=== PATIENT | female | born 1975 | race Caucasian/White ===

== ENCOUNTER → 2018-06-09 | Outpatient (CLI) | payer BC ==
[2018-06-09 09:36] VITALS: BP 119/84; PULSE 121; TEMP 98.2; BMI 38.0
--- NOTE | 2018-06-09 10:58 | P.HPOB ---
History of Present Illness H&P Date: 06/09/18 Chief Complaint: The patient is here for her routine gynecologic exam. This is a 43-year-old G0 with an LMP of 05/30/2018. The patient has never been sexually active. She states her menses are regular every month. Over the last 10 years, her menstrual periods have gotten heavier and longer. They previously were 4 days long and now our lasting about 7 days with 3 days of heavy flow. She also has significant cramping with the heavy flow. On the heavy days, she has to change your protection up to every one or 2 hours. She can bleed through her heavy protection. She has also been dealing with iron deficiency anemia and sees a research administrator because of this. She was told she does not absorb oral iron well and has required iron infusions. She states she is not interested in childbearing and would like to do something about her heavy menses. She has tried several -control pills, but each had side effects that were not tolerable to her. She has used Anaprox for her cramps, but this made her tired. She does take Advil which has been more tolerable. It has been about 4 years since her last pelvic exam. Review of Systems She has intentionally lost about 24 pounds. She denies respiratory, cardiac, or G.I. problems. Past Medical History Past Medical History: Thyroid Disorder (Erwin's and hypothyroidism) Additional Past Medical History / Comment(s): Iron deficiency anemia. Seasonal allergies. 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 History of Any Multi-Drug Resistant Organisms: None Reported Past Surgical History: No Surgical Hx Reported Past Psychological History: Anxiety, Depression Smoking Status: Never smoker Past Alcohol Use History: Rare (10 per year) Past Drug Use History: None Reported Additional History: She is single and is not seen anybody at this time. 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 - Past Family History Father Family Medical History: Hyperlipidemia Mother Family Medical History: No Reported History Additional Family Medical History / Comment(s): Maternal grandmother:colon and breast cancer Medications and Allergies Home Medications Medication Instructions Recorded Confirmed Type Escitalopram [Lexapro] mg PO DAILY 06/09/18 History Levocetirizine Dihydrochloride mg PO DAILY 06/09/18 History [Xyzal] Levothyroxine Sodium [Synthroid] mcg PO DAILY 06/09/18 History Phentermine HCl mg PO DAILY 06/09/18 History Allergies Allergy/AdvReac Type Severity Reaction Status Date / Time No Known Allergies Allergy Unverified 06/09/18 09:32 Exam Vital Signs Temp Pulse BP 06/09/18 09:34 98.2 F 121 H 119/84 Intake and Output 06/08/18 06/09/18 06/09/18 22:59 06:59 14:59 Other: Weight 94.347 kg Height 5'2", BMI 38.0. This is a well-developed well-nourished heavyset white female who is alert and oriented times 3 in no acute distress. HEENT: Within normal limits. NECK: Supple without mass or thyromegaly. CHEST AND LUNGS: Clear to auscultation. HEART: tachycardia. BREASTS: Are without mass or discharge. AXILLARY EXAM: Negative for adenopathy. BACK: Negative for CVA tenderness. ABDOMEN: Soft, nontender, without palpable masses. PELVIC EXAM: Normal external genitalia . Introitus is virginal and allows a narrow Christina speculum or a single digit. Cervix and vagina appear normal. There is a clear mucus discharge possibly consistent with ovulation. There is no evidence of prolapse. The uterus is midposition, multiparous nongravid size (mildly enlarged for a nulliparous female)and nontender. There are no palpable adnexal masses or tenderness. RECTAL EXAM: negative for mass or tenderness and is negative for occult blood. EXTREMITIES: Nontender. IMPRESSION: 1. 43-year-old virginal female with menorrhagia and iron deficiency anemia which may be secondary to the menorrhagia. 2. Tachycardia. The patient states she has a chronically elevated heart rate secondary to her anemia. She also states that is a bit higher than usual because of some anxiety. PLAN: 1. Pap smear was performed. 2. Self breast awareness was discussed with the patient. 3. Baseline screening mammogram is recommended and the order slip was given the patient for this. 4. Pelvic ultrasound to further evaluate her menorrhagia and mildly enlarged uterus. 5. Trial of meclofenamate sodium 100 mg TID PRN for heavy menstrual flow 6 days per cycle. The electronic prescription will be sent to [facility] pharmacy and [facility]. 6. The patient will keep a menstrual calendar. If she does not have significant improvement after 3 months with the medication, she will call and we will discuss other options including endometrial ablation. 7. We have discussed other options including endometrial ablation and hysterectomy. She understands that both of these procedures are not recommended if she wants to get . She states that she is not interested in bearing children. The [employer] FAQ handouts on heavy menstrual bleeding and endometrial ablation or given to the patient. 8. She will also return in one year and PRN. 9. She will continue to follow up with her primary care physician and Dr. Vegas, her research administrator for iron infusions.
== END | disposition home or self-care (01) ==
LOC: WWCWWP 08:40
PROVIDERS: ATTEND Obstetrics & Gynecology
DX: Z53.9 Procedure and treatment not carried out, unspecified reason (principal)

== ENCOUNTER → 2019-08-16 | Outpatient (CLI) | payer BC ==
[2019-08-16 08:09] VITALS: BP 125/81; PULSE 114; RESP 16; TEMP 98; BMI 38.4
--- NOTE | 2019-08-16 09:00 | P.HPOB ---
History of Present Illness H&P Date: 08/16/19 Chief Complaint: The patient is here for her routine gynecologic exam and ma mmogram. This is a 44-year-old G0 with an LMP of 07/24/2019. 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 She has had improvement in her anemia since using the meclofenamate sodium. Menses were regular every month until May when she had a menstrual period lasted 32 days. Periods were otherwise regular since then. She is interested in trying control pills again since she states her menstrual periods she did have some side effects on control pills in the past and is requesting a low-dose control pill. Her menstrual periods were much better on control pills. She is still not sexually active. Review of Systems The patient's weight has been stable over the last year. She denies respiratory, cardiac, or G.I. problems. Past Medical History Past Medical History: Thyroid Disorder Additional Past Medical History / Comment(s): Erwin's and hypothyroidism. Iron deficiency anemia. Seasonal allergies. 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 History of Any Multi-Drug Resistant Organisms: None Reported Past Surgical History: No Surgical Hx Reported Past Psychological History: Anxiety, Depression Smoking Status: Never smoker Past Alcohol Use History: Rare Past Drug Use History: None Reported Additional History: She is single and is not seeing anybody at this time. 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 - Past Family History Father Family Medical History: Hyperlipidemia Mother Family Medical History: No Reported History Additional Family Medical History / Comment(s): Maternal grandmother:colon and breast cancer Medications and Allergies Home Medications Medication Instructions Recorded Confirmed Type Escitalopram [Lexapro] 10 mg PO DAILY 06/09/18 08/16/19 History Levocetirizine Dihydrochloride 5 mg PO DAILY 06/09/18 08/16/19 History [Xyzal] Levothyroxine Sodium [Synthroid] 200 mcg PO DAILY 06/09/18 08/16/19 History Meclofenamate Sodium 100 mg PO TID PRN #25 capsule 06/09/18 08/16/19 Rx Chlorthalidone 25 mg PO DAILY PRN 08/16/19 08/16/19 History Liothyronine Sodium 25 mcg PO DAILY 08/16/19 08/16/19 History Allergies Allergy/AdvReac Type Severity Reaction Status Date / Time walnut Allergy Swelling Unverified 08/16/19 08:09 Exam Vital Signs Temp Pulse Resp BP Pulse Ox 08/16/19 08:05 98.0 F 114 H 16 125/81 99 Intake and Output 08/15/19 08/16/19 08/16/19 22:59 06:59 14:59 Other: Weight 95.254 kg Height 5 feet 2 inches, weight 210 pounds, BMI 38.4. This is a well-developed well-nourished heavyset white female female who is alert and oriented times 3 in no acute distress. HEENT: Within normal limits. NECK: Supple without mass or thyromegaly. CHEST AND LUNGS: Clear to auscultation. HEART: Regular rate and rhythm. BREASTS: Are without mass or discharge. AXILLARY EXAM: Negative for adenopathy. BACK: Negative for CVA tenderness. ABDOMEN: Soft, nontender, without palpable masses. PELVIC EXAM: Normal external genitalia. Cervix and vagina appear normal. There is no unusual discharge. There is no evidence of prolapse. The uterus is midposition, nongravid size and nontender. There are no palpable adnexal masses or tenderness. RECTAL EXAM: negative for mass or tenderness and is negative for occult blood. EXTREMITIES: Nontender. IMPRESSION: 1. 44-year-old female with hypermenorrhea somewhat improved with meclofenamate sodium. 2. One month of dysfunctional uterine bleeding in May of this year which has improved. 3. The patient is not sexually active. 4. Normal gynecologic exam. PLAN: 1. Pap smear was deferred since she had a normal one on 06/09/2018. 2. Self breast awareness was discussed with the patient. 3. Screening mammogram will be done today. 4. We had a long discussion regarding options for her hypermenorrhea. The patient is requesting to restart control pills which she had taken before, but had some side effects. She is requesting low-dose oral contraception. The patient will be started on Loestrin 10/31 and she will start this on the Thursday following the onset of her next normal menstrual period. We discussed possible side effects and possible risks including blood clots. The electronic prescription will be sent to [facility] pharmacy in [place]. She will keep a menstrual calendar. She will call if she is having problems. 5. If she does not do well with control pills or she is not noticing significant improvement, we will consider endometrial ablation. 6. She was advised to return in one year for her annual well woman exam and as needed.
--- NOTE | 2019-08-17 15:10 | MM ---
Reason for exam: screening (asymptomatic). Last mammogram was performed 1 year and 2 months ago. History: Family history of breast cancer in maternal grandmother at age 70. Physical Findings: A clinical breast exam by your physician is recommended on an annual basis and results should be correlated with mammographic findings. MG Screening Mammo w CAD Bilateral CC and MLO view(s) were taken. Prior study comparison: June 18, 2018, bilateral MG 3d screening mammo w/cad. The breast tissue is heterogeneously dense. This may lower the sensitivity of mammography. No suspicious abnormality. No significant changes when compared with prior studies. ASSESSMENT: Negative, BI-RAD 1 RECOMMENDATION: Routine screening mammogram of both breasts in 1 year.
== END | disposition home or self-care (01) ==
LOC: WWCWWP 07:46
PROVIDERS: ATTEND Obstetrics & Gynecology
DX: Z12.31 Encounter for screening mammogram for malignant neoplasm of breast (principal)
CPT/HCPCS: 77067